=== PATIENT | male | born 1995 | race Hispanic/Latino ===

== ENCOUNTER 2016-12-08 05:19 | Emergency (ER) | payer OTHER ==
[~2016-12-08] VITALS: Ht 175.3 cm; Wt 60.9 kg
[~2016-12-08 05:19] MED LIST changes: -0.9% Sodium Chloride 1,000 ML IV SCH; -Sodium Chloride LOK Flush 10 mL Syringe IV PRN; -fentaNYL-PF 50 mCg/mL 2 mL Inj IVPUSH PRN
[2016-12-08 05:22] VITALS: BP 117/75; PULSE 90; RESP 16; O2SAT 100
[2016-12-08] MEDS ORDERED: Ondansetron 8 mg ODT Tablet ONE (05:45)
--- NOTE | 2016-12-08 06:15 | ED.REPORT ---
HPI-General Illness Date of Service Dec 08, 2016 ED Provider: An Dan MD 21 year old male presents to the ER accompanied by his mother complaining of nausea and vomiting onset three hours ago. He reports that he awakened today at 03:00 with dizziness and abdominal pain, and began vomiting shortly after. Patient is scheduled for a colonoscopy today at 10:00 due to persistent constipation, and he states that he has not yet completed his colonoscopy prep. Nursing Notes Stated Complaint: NAUSEA/ VOMITING Chief Complaint: Male Abdominal Pain Nursing Notes Reviewed: Yes Allergies: Coded Allergies: No Known Allergies (Verified Allergy, Unknown, 09/24/16) Scheduled Omeprazole (Omeprazole) 20 Mg Tablet.dr 20 MG PO BID Ranitidine (Ranitidine) 300 Mg Tablet 300 MG PO HS Scheduled PRN Ondansetron ODT (Zofran ODT) 4 Mg Tablet 20 MG PO Q4H PRN PRN For Nausea General Time Seen by MD: 06:13 Chief Complaint Vomiting Hx Obtained From: Patient Arrived By: Walk-in Sudden in Onset?: Yes Onset Occurred: 1 - 4 hours ago Symptom Duration: Since onset Associated with: Reports: Abdominal pain Pertinent Negative: Pt denies other symptoms Past Medical History Past Medical History Hx of gastritis Reports: Asthma Past Surgical History Hernia repair Reports: Tonsillectomy Family History Noncontributory Smoking History Never Smoker Social History Alcohol Use: Denies alcohol use Drug Use: Denies drug use Other Social History: Good social support, Lives with parents, Local resident Occupation no work or school Ambulatory Status Independent Review of Systems Full Review of Systems Constitutional: Denies: Chills, Fever GI: Reports: Abdominal pain, Nausea, Vomiting Male: Denies Dysuria, Denies Flank pain Neurologic: Reports: Dizziness Complete sys rev & neg: except as marked. Physical Exam Vital Signs Vital Signs Date Time Temp Pulse Resp B/P Pulse Ox O2 Delivery O2 Flow Rate FiO2 12/08/16 08:00 12/08/16 05:22 35.9 90 16 117/75 100 Room Air Initial VS: Reviewed General/Constitutional: Well-developed, Well-nourished Head / Eyes: Atraumatic, Normocephalic, PERRL Neck: Supple, Non-tender, Full range of motion Extremities: Vascular intact, Neuro intact, No swelling, No tenderness Neurologic: Alert, Oriented, Nonfocal Respiratory / Chest: Breath sounds NL, No respiratory distress, No rales, No rhonchi, No wheezing Cardiovascular: Heart rate NL, Regular rhythm, Heart sounds NL, Cap refill not delayed, Peripheral circulation NL Abdomen: Soft, Non-tender, No guarding, No rebound, No distention Skin: Warm, Intact Color / Condition: Positive: Diaphoresis present (mild) Interpretation & Diagnostics Lab Results Interpretation Result Diagram: 12/08/16 0748 12/08/16 0748 Test 12/08/16 07:48 White Blood Count 6.3th/mm3 (3.8-10.1) Red Blood Count 5.28mil/mm3 (4.40-5.80) Hemoglobin 15.7g/dL (13.8-17.2) Hematocrit 43.4% (41.0-50.0) Mean Corpuscular Volume 82.2fL (81-100) Mean Corpuscular Hemoglobin 29.7pg (27.0-35.0) Mean Corpuscular Hemoglobin Concent 36.2% (32.0-37.0) Red Cell Distribution Width 12.0% (12.3-15.4) Platelet Count 225bil/L (150-400) Neutrophils (%) (Auto) 79.9% (40-74) Lymphocytes (%) (Auto) 15.8% (14-46) Monocytes (%) (Auto) 3.5% (4-12) Eosinophils (%) (Auto) 0.6% (0-5) Basophils (%) (Auto) 0.2% (0-3) Sodium Level 137mEq/L (134-144) Potassium Level 4.3mEq/L (3.5-5.2) Chloride Level 99mEq/L (97-108) Carbon Dioxide Level 17mmol/L (18-29) Blood Urea Nitrogen 17mg/dL (6-20) Creatinine 0.84mg/dL (0.76-1.27) Estimat Glomerular Filtration Rate 124mL/min (>59) Glucose Level 77mg/dL (60-99) Calcium Level 9.0mg/dL (8.5-10.1) Magnesium Level 2.0mg/dL (1.6-2.6) Total Bilirubin 1.3mg/dL (0.0-1.2) Aspartate Amino Transf (AST/SGOT) 21U/L (0-50) Alanine Aminotransferase (ALT/SGPT) 12U/L (0-44) Alkaline Phosphatase 90U/L (25-150) Total Protein 7.2g/dL (6.4-8.4) Albumin 4.7g/dL (3.4-5.0) Lipase 16U/L (13-60) Re-Eval/Medical Decision Med Decision/Clinical Course vomitted after initial bottle of bowel prep. Instructions said to "come to the ER for vomiting". He has had some stool out, but not clear. Needs second half of prep. Zofran, IV fluid, depart to Endo for scheduled colonoscopy (indication is constipation). Dr Landon notified Re-Evaluation/Progress Note: Discussed plan to discharged to day surgery. Patient is amenable to the plan. Counseled Regarding: Diagnosis, Need for follow-up, When/why to return to ED Discharge & Departure Primary Impression: Vomiting Disposition: Home Discharge Condition All VS Reviewed: Yes Condition: Stable Additional Instructions: I'm sorry your prep made you throw up You got some zofran and some IV protonix in the ER They are expecting you in the endoscopy suite at 9:30 for your scheduled colonoscopy. Good luck! Referrals: Steven Whaley DO (PCP) Jody Attestation Portions of this note were transcribed by Ollie Beebe. I, Dr. Dan, personally performed the history, physical exam and medical decision-making; I reviewed and confirmed the accuracy of the information in the transcribed note. Signed by: Jody Escobar, 12/08/2016 and 06:24 copies to: Steven Whaley Shawna L MD Dec 08, 2016 06:15 OLLIE BEEBE Dec 08, 2016 06:23
[2016-12-08] MEDS ORDERED: 0.9% Sodium Chloride 1,000 ML IV ONE (06:23)
[2016-12-08] MEDS ORDERED: Pantoprazole 4 mg/mL 10 mL Inj IVPUSH ONE (06:25)
[2016-12-08] MEDS ORDERED: Ondansetron 2 mg/mL 2 mL Inj IVPUSH ONE (06:25)
[2016-12-08 08:00] VITALS: BP 117/75; PULSE 90; RESP 16; O2SAT 100
[2016-12-08 08:09] LABS: BASOPHILS % (AUTO) 0.2 % (0-3); EOSINOPHILS % (AUTO) 0.6 % (0-5); MONOCYTES % (AUTO) 3.5 % (4-12); Mean Corpuscular Hemoglobin 29.7 pg (27.0-35.0); Mean Corpuscular Volume 82.2 fL (81-100); NEUTROPHILS % (AUTO) 79.9 % (40-74); Platelet Count 225 bil/L (150-400)
== END 2016-12-08 09:41 | disposition home or self-care (01) ==
LOC: SED 05:19
DX: R11.10 Vomiting, unspecified (principal)
CPT/HCPCS: 36415; 80053; 83690; 83735; 85025; 96361; 96374; 96375; 99284; J2405; J7030

== ENCOUNTER → 2016-12-08 | Day surgery (SDC) | payer OTHER ==
[~2016-12-08] VITALS: Ht 175.3 cm; Wt 60.8 kg
[~2016-12-08] MED LIST: 0.9% Sodium Chloride 1,000 ML IV SCH; OMEP20TA86 PO; ONDA4TAB9 PO; RANI300T4 PO; Sodium Chloride LOK Flush 10 mL Syringe IV PRN; fentaNYL-PF 50 mCg/mL 2 mL Inj IVPUSH PRN
[2016-12-08 10:10] VITALS: BP 118/76; PULSE 102; RESP 16; O2SAT 100
--- NOTE | 2016-12-08 11:00 | PCM.ENDEGD ---
EGD Physician Vinicius Landon MD Pre Procedure Diagnosis: Dysphagia Post Procedure Dx & Findings: Normal upper endoscopy Procedure Esophagogastroduodenoscopy PROCEDURE IN DETAIL: After proper sedation, Olympus video endoscope was inserted into patient's mouth and esophagus was successfully intubated. Scope introduced esophagus. Esophagus showed normal shiny whitish mucosa consistent with squamous cell component. Z line was intact at 42 cm from the incisors. The scope further advanced to the stomach. Stomach showed normal shiny mucosa with normal appearing rugae folds without any ulcer mass erosion. Cardia fundus body antrum pylorus were all visualized. Retroflexion was done. Stomach was easily inflated and deflatable using air. Scope further events to the distal duodenum. Duodenum revealed normal villous structures with normal appearing folds without any mass ulcer erosion. Impression Normal upper GI Recommendation Follow up in GI clinic with the PA Dr. Brown Presedation Assessment Risks and Benefits Informed consent was obtained from the patient after all risks and benefits including but not limited to drug reaction, infection, pain, bleeding, perforation, as well as alternatives were discussed. Patient monitoring Continuous pulse oximetry, cardiac monitoring, blood pressure monitoring, IV access, and oxygen at 2L per nasal cannula. Periprocedural Fentanyl: Fentanyl 200mcg Incrementally Midazolam: Midazolam 10mg Incrementally Diphenhydramine: Diphenhydramine 50 mg IV Complications There were no periprocedural complications identified. Post Procedure Plan Post Procedure Recommendations 1. Restrict activities today. 2. Resume normal activities in the morning. 3. Resume medications. 4. GERD behavioral modification: - Avoid fatty, acidic, spicy, large meals - Do not lie down after meals - Do not eat or drink anything for at least 2 1/2 hours before going to bed at night - Discontinue tobacco and alcohol - Decrease or avoid caffeine - Avoid chocolate and mints - Decrease weight - Avoid aspirin and non steroidal anti-inflammatory agents (NSAID) such as Aleve, Advil, Mobic, Naproxen, Ibuprofen, etc 5. Add proton pump inhibitor. Take 30 minutes before 1st meal of the day. 6. Patient informed of normal post procedure side effects as bloating, drowsiness, blood streaking in the stool 7. If gastric biopsy reveal H.pylori, continue with appropriate treatment 8. If small bowel biopsy reveals celiac, continue with appropriate treatment 9. Please don't hesitate to call me with any questions Vinicius Landon MD Dec 08, 2016 11:00
--- NOTE | 2016-12-08 11:16 | PCM.ENDCOL ---
Colonoscopy Date of Service: Dec 08, 2016 Physician Vinicius Landon MD Pre Procedure Diagnosis: Constipation Post Procedure Dx & Findings: Normal colonoscopy Procedure Colonoscopy PROCEDURE IN DETAIL: Prep adequate Withdrawal time 8 minutes After unremarkable rectal examination the Olympus video colonoscope was inserted patient's anal canal and was advanced to cecum. Landmarks were identified including the ileocecal valve and appendiceal orifice. Scope was withdrawn systematically. Visualized colonic mucosa showed healthy shiny mucosa with normal healthy-appearing vasculature. Scope further advanced to the terminal ileum. We advanced about 10 cm. Normal villous structure noted without ulcer or mass erosion. In the rectum retroflexion was done which showed hemorrhoids. Anal canal was inspected carefully on the way out and hemorrhoids noted. Impression Normal colon Normal TI Hemorrhoids Recommendation Repeat colonoscopy at 50 years ago if his normal risk. Follow-up with Dr. Kevin BREAUX in the GI clinic Presedation Assessment Risks and Benefits Informed consent was obtained from the patient after all risks and benefits including but not limited to drug reaction, infection, pain, bleeding, perforation, as well as alternatives were discussed. Patient monitoring Continuous pulse oximetry, cardiac monitoring, blood pressure monitoring, IV access, and oxygen at 2L per nasal cannula. Complications There were no periprocedural complications identified. Post Procedure Plan Post Procedure Recommendations 1. Restrict activities today. 2. Resume normal activities in the morning. 3. Resume medications. 4. Patient informed of normal post procedure side effects as bloating, drowsiness, blood streaking in the stool. 5. average risk CRCS. If colon polyps come back as: -Hyperplastic- can repeat colonoscopy in 10 years -Tubular adenoma- repeat colonoscopy in 5 years -Tubulovillous/villous adenoma- repeat colonoscopy in 3 years -If any dysplasia- return to clinic as soon as possible 6. Please don't hesitate to call me with any questions. Vinicius Landon MD Dec 08, 2016 11:16
[2016-12-08 11:24] VITALS: BP 111/62; PULSE 104; RESP 14; O2SAT 100
== END | disposition home or self-care (01) ==
LOC: END 00:33
PROVIDERS: ATTEND Internal Medicine
DX: K59.00 Constipation, unspecified (principal); R13.10 Dysphagia, unspecified; R63.4 Abnormal weight loss; R63.0 Anorexia
CPT/HCPCS: 43235; 99153; G0500; J1200; J2250; J3010; J7030